=== PATIENT | male | born 1985 | race Two or more races ===

== ENCOUNTER 2020-02-11 00:55 | Emergency (ER) | payer MEDICAID, OTHER ==
[~2020-02-11] VITALS: Ht 170.2 cm; Wt 106.6 kg
[2020-02-11] MEDS ORDERED: EPINEPHRINE (1:1000) 1 MG/ML AMPUL ONE (01:49)
[2020-02-11] MEDS ORDERED: predniSONE 20 MG TABLET ONE (01:49)
[2020-02-11] MEDS ORDERED: diphenhydrAMINE HCL 50 MG CAPSULE ONE (01:50)
[2020-02-11] MEDS ORDERED: predniSONE 10 MG TABLET PO ONE (02:00)
[2020-02-11] MEDS ORDERED: EPINEPHRINE (1:1000) MDV 30 MG/30ML VIAL SUBCUT ONE (02:00)
[2020-02-11] MEDS ORDERED: diphenhydrAMINE HCL 50 MG CAPSULE PO ONE (02:00)
[2020-02-11 02:09] VITALS: BP 145/76
--- NOTE | 2020-02-11 02:09 | NUR ---
PATIENT REFUSED THE EPINEPHRINE SQ 0.15MG, MD IS NOTIFIED.
--- NOTE | 2020-02-11 02:10 | NUR ---
Patient discharged to home in stable condition. Written and verbal after care instructions given. Patient verbalizes understanding of instruction.
== END 2020-02-11 02:11 | disposition home or self-care (01) ==
LOC: ER 01:02
DX: L50.8 Other urticaria (principal); F17.210 Nicotine dependence, cigarettes, uncomplicated
CPT/HCPCS: 99283; 99406; J0171 ×2; J7512; Q0163

== ENCOUNTER 2021-11-03 01:42 | Emergency (ER) | payer SELFPAY ==
[~2021-11-03] VITALS: Ht 180.3 cm; Wt 108.9 kg
--- NOTE | 2021-11-03 02:03 | NUR ---
BIBFAMILY C/O PAIN WITH COUGH X 1 DAY . PT AWAKE AND ALERT X4 BREATHING EVEN AND UNLABORED. PT V/S WNL AND AFEBRILE. MD WAS AT BEDSIDE.
[2021-11-03] MEDS ORDERED: ALBUTEROL FS 2.5 MG/0.5 ML VIAL.NEB NEB ONE (02:30)
[2021-11-03] MEDS ORDERED: ALBUTEROL FS 2.5 MG/0.5 ML VIAL.NEB ONE (02:39)
--- NOTE | 2021-11-03 03:15 | NUR ---
Patient discharged to home in stable condition. Written and verbal after care instructions given. Patient verbalizes understanding of instruction.
[2021-11-03 03:16] VITALS: BP 148/82
== END 2021-11-03 03:17 | disposition home or self-care (01) ==
LOC: ER 01:47
DX: R05.9 Cough, unspecified (principal); F17.200 Nicotine dependence, unspecified, uncomplicated
CPT/HCPCS: 71045-TC